=== PATIENT | female | born 1980 | race Caucasian/White ===

== ENCOUNTER 2018-11-17 12:00 | Emergency (ER) | payer MEDICAID ==
[~2018-11-17] VITALS: Ht 157.5 cm; Wt 71.0 kg
[2018-11-17] MEDS ORDERED: KETOROLAC 30 MG/1 ML IM ONE (13:30)
[2018-11-17] MEDS ORDERED: DIAZEPAM 5 MG TABLET PO ONE (13:30)
[2018-11-17] MEDS ORDERED: KETOROLAC 30 MG/1 ML ONE (13:33)
[2018-11-17] MEDS ORDERED: DIAZEPAM 5 MG TABLET ONE (13:33)
[2018-11-17 14:02] VITALS: BP 99/62
== END 2018-11-17 14:13 | disposition home or self-care (01) ==
LOC: ED 13:40
DX: S29.012A Strain of muscle and tendon of back wall of thorax, initial encounter (principal); M54.5 Low back pain; X58.XXXA Exposure to other specified factors, initial encounter; Y93.89 Activity, other specified; Y92.89 Other specified places as the place of occurrence of the external cause; Y99.8 Other external cause status
CPT/HCPCS: 71046; 96372; 99283; J1885